=== PATIENT | male | born 1950 | race Caucasian/White ===

== ENCOUNTER 2017-09-16 18:43 | Inpatient (IN) | payer MEDICARE, OTHER ==
[2017-09-16 19:32] LABS: WHITE BLOOD COUNT 73.7 10^3/ul (4.8-10.8)
[2017-09-16 19:32] LABS: ABNORMAL IP MESSAGE 1; HEMATOCRIT 41.4 % (42.0-52.0); HEMOGLOBIN 13.8 g/dl (14.0-18.0); MEAN CORPUSCULAR HGB CONC 33.3 g/dl (32.0-37.0); MEAN PLATELET VOLUME 11.8 fl (7.4-10.4); PLATELET COUNT 299 10^3/UL (140-415); POSITIVE DIFF @See below; RED CELL DISTRIBUTION WIDTH 12.7 % (11.5-14.5)
[2017-09-16] MEDS: CEFEPIME 2GM/50 ML (PMX) 50 ML IVPB (19:35)
[2017-09-16] MEDS: SODIUM CHLORIDE 0.9% 1L BAG IV* (19:35)
[2017-09-16 19:40] LABS: ADD MAN DIFF? YES
[2017-09-16 20:05] LABS: INR 1.15; PARTIAL THROMBOPLASTIN TIME 27.5 Sec (25.0-35.0); PROTIME 14.9 Sec (11.9-14.9); PT RATIO 1.2
[2017-09-16 20:10] LABS: ALANINE AMINOTRANSFERASE 52 IU/L (13-69); ALBUMIN 2.5 g/dl (3.3-4.9); ALBUMIN/GLOBULIN RATIO 0.78; ALKALINE PHOSPHATASE 151 IU/L (42-121); ANION GAP 27 (8-16); ASPARTATE AMINO TRANSFERASE 25 IU/L (15-46); BILIRUBIN,INDIRECT 0.2 mg/dl (0-1.1); BILIRUBIN,TOTAL 0.2 mg/dl (0.2-1.3); BLOOD UREA NITROGEN 35 mg/dl (7-20); CARBON DIOXIDE 14 mmol/L (21-31); CHLORIDE 93 mmol/L (97-110); CREATININE 1.71 mg/dl (0.61-1.24); POTASSIUM 4.1 mmol/L (3.5-5.1); SODIUM 130 mmol/L (135-144); TOTAL PROTEIN 5.7 g/dl (6.1-8.1)
[2017-09-16 20:11] LABS: BAND NEUTROPHILS #M 4.4 10^3/ul (0.0-0.6); BAND NEUTROPHILS % (M) 6 % (0-4); LYMPHOCYTES #M 0.7 10^3/ul (0.8-2.9); LYMPHOCYTES % (M) 1 % (15-51); MONOCYTE #M 3.6 10^3/ul (0.3-0.9); MONOCYTES % (M) 5 % (0-11); PLATELET ESTIMATE NORMAL; PROMYELOCYTES #M 0.7 10^3/ul (0-0); PROMYELOCYTES % (M) 1 % (0-0); SEG NEUT #M 67.4 10^3/ul (1.6-7.5); SEGMENTED NEUTROPHILS (M) % 87 % (39-77); SMUDGE%M 2 % (0-0)
[2017-09-16 20:22] LABS: TROPONIN-I 0.053 ng/ml (0.00-0.12)
[2017-09-16 20:38] LABS: GLUCOSE 571 mg/dl (70-220)
[2017-09-16 21:31] LABS: LACTIC ACID 2.4 mmol/L (0.5-2.0)
[2017-09-16 22:50] LABS: ADD UMIC YES; UR ASCORBIC ACID NEGATIVE (NEGATIVE); UR BACTERIA FEW /HPF (NONE SEEN); UR BILIRUBIN (Dip) NEGATIVE (NEGATIVE); UR BLOOD (Dip) 3+ mg/dL (NEGATIVE); UR CLARITY CLOUDY (CLEAR); UR COLOR YELLOW (YELLOW); UR GLUCOSE (Dip) 3+ mg/dL (NEGATIVE); UR KETONES (Dip) 1+ mg/dL (NEGATIVE); UR LEUKOCYTE ESTERASE (Dip) 3+ Leu/ul (NEGATIVE); UR NITRITE (Dip) POSITIVE (NEGATIVE); UR RBC 66 /HPF (0-5); UR SPECIFIC GRAVITY (Dip) 1.014 (1.003-1.030); UR TOTAL PROTEIN (Dip) 2+ mg/dl (NEGATIVE); UR UROBILINOGEN (Dip) 1+ mg/dL (NEGATIVE); UR WBC > 182 /HPF (0-5)
[2017-09-16] MEDS: INSULIN LISPRO 100 UNIT/ML VIAL SC (23:25)
[2017-09-16 23:55] LABS: LACTIC ACID 2.2 mmol/L (0.5-2.0)
[2017-09-17] MEDS ORDERED: DEXTROSE 50% 50 ML IV
[2017-09-17] MEDS ORDERED: DEXTROSE 50% 25 ML IV
[2017-09-17] MEDS ORDERED: ADJUSTMENT OF INSULIN INFUSION RATE (DKA PROTOCOL) XX (00:30)
[2017-09-17] MEDS: INSULIN HUMAN REGULAR 100 UNIT in SOD CHLORIDE 0.9% 99 ML IV (00:45)
[2017-09-17 01:44] LABS: ANION GAP 17 (8-16); BLOOD UREA NITROGEN 38 mg/dl (7-20); CALCIUM 8.4 mg/dl (8.4-10.2); CARBON DIOXIDE 22 mmol/L (21-31); CHLORIDE 100 mmol/L (97-110); CREATININE 1.45 mg/dl (0.61-1.24); POTASSIUM 3.8 mmol/L (3.5-5.1); SODIUM 135 mmol/L (135-144)
[2017-09-17 01:46] LABS: GLUCOSE 439 mg/dl (70-220)
[2017-09-17 02:16] LABS: MODE ROOM AIR; MetHgb Venous 1.4 %; Sample Type Blood venous; Site VENOUS LINE; Venous COHb 0.5 %; Venous Fraction OxyHgb 76.1 %; Venous Oxygen Sat 77.6 mmHG (55.0-75.0); Venous Total Hemglobin 6.3 g/dl
[2017-09-17] MEDS: DILTIAZEM 50 MG INJ IV ×2 (02:40→04:48)
[2017-09-17] MEDS ORDERED: LORAZEPAM 2 MG INJ (03:38)
[2017-09-17] MEDS: LORAZEPAM 2 MG INJ IV (03:46)
[2017-09-17 03:58] LABS: ANION GAP 16 (8-16); BLOOD UREA NITROGEN 42 mg/dl (7-20); CALCIUM 8.3 mg/dl (8.4-10.2); CARBON DIOXIDE 22 mmol/L (21-31); CHLORIDE 102 mmol/L (97-110); CREATININE 1.36 mg/dl (0.61-1.24); GLUCOSE 286 mg/dl (70-220); POTASSIUM 3.3 mmol/L (3.5-5.1); SODIUM 137 mmol/L (135-144)
[2017-09-17] MEDS: SOD CHLORIDE 0.9% 1,000 ML IV ×2 (04:15→06:08)
[2017-09-17] MEDS: POTASSIUM CHLORIDE 30 MEQ in SOD CHLORIDE 0.9% 1,000 ML IV (05:00)
[2017-09-17] MEDS: DEXTROSE 5%-0.45% NACL 1,000 ML IV ×2 (05:45→10:26)
[2017-09-17 06:28] LABS: ANION GAP 12 (8-16); BLOOD UREA NITROGEN 44 mg/dl (7-20); CALCIUM 8.5 mg/dl (8.4-10.2); CARBON DIOXIDE 28 mmol/L (21-31); CHLORIDE 106 mmol/L (97-110); CREATININE 1.22 mg/dl (0.61-1.24); GLUCOSE 107 mg/dl (70-220); POTASSIUM 3.5 mmol/L (3.5-5.1); SODIUM 142 mmol/L (135-144)
[2017-09-17] MEDS ORDERED: VANCOMYCIN IV PER PHARMACY XX (06:30)
[2017-09-17] MEDS ORDERED: NORepinephrine 8MG/250 ML (PMX 250 ML IV (06:30)
[2017-09-17] MEDS ORDERED: ACETAMINOPHEN 650 MG SUPP PR (06:30)
[2017-09-17] MEDS: PIPER-TAZO 3.375 GM IV (PMX) 100 ML IVPB ×2 (07:20→12:42)
[2017-09-17] MEDS ORDERED: DEXTROSE 50% 50 ML SYRINGE IV ×4 (08:00→09:00)
[2017-09-17] MEDS ORDERED: INSULIN HUMAN REGULAR 100 UNIT in SOD CHLORIDE 0.9% 99 ML IV (08:00)
[2017-09-17] MEDS: ACCU-CHEK XX (08:17)
[2017-09-17] MEDS: VANCOMYCIN 1.5 GM in SOD CHLORIDE 0.9% 250 ML IVPB (08:48)
[2017-09-17] MEDS ORDERED: GLUCAGON 1 MG INJ IM (09:00)
[2017-09-17] MEDS ORDERED: GLUCOSE GEL 15 GRAM TUBE BUCCAL (09:00)
[2017-09-17] MEDS ORDERED: GLUCOSE GEL 15 GRAM TUBE PO ×2 (09:00)
[2017-09-17 09:26] LABS: ANION GAP 11 (8-16); BLOOD UREA NITROGEN 42 mg/dl (7-20); CARBON DIOXIDE 27 mmol/L (21-31); CHLORIDE 106 mmol/L (97-110); CREATININE 1.08 mg/dl (0.61-1.24); GLUCOSE 69 mg/dl (70-220); POTASSIUM 3.7 mmol/L (3.5-5.1); SODIUM 140 mmol/L (135-144)
[2017-09-17] MEDS: INSULIN GLARGINE [LANtus] 3 ML PEN SC (10:19)
[2017-09-17 10:27] LABS: ABNORMAL IP MESSAGE 1; HEMATOCRIT 34.7 % (42.0-52.0); HEMOGLOBIN 12.1 g/dl (14.0-18.0); MEAN CORPUSCULAR HEMOGLOBIN 30.9 pg (29.0-33.0); MEAN CORPUSCULAR HGB CONC 34.9 g/dl (32.0-37.0); MEAN CORPUSCULAR VOLUME 88.5 fl (82.0-101.0); MEAN PLATELET VOLUME 11.4 fl (7.4-10.4); PLATELET COUNT 230 10^3/UL (140-415); POSITIVE DIFF @See below; RED BLOOD COUNT 3.92 10^6/ul (4.70-6.10); RED CELL DISTRIBUTION WIDTH 12.5 % (11.5-14.5)
[2017-09-17 10:27] LABS: WHITE BLOOD COUNT 50.6 10^3/ul (4.8-10.8)
[2017-09-17 10:30] LABS: ADD MAN DIFF? YES
[2017-09-17 10:43] LABS: ANION GAP 12 (8-16); BLOOD UREA NITROGEN 40 mg/dl (7-20); CARBON DIOXIDE 23 mmol/L (21-31); CHLORIDE 106 mmol/L (97-110); CREATININE 1.06 mg/dl (0.61-1.24); GLUCOSE 148 mg/dl (70-220); POTASSIUM 3.4 mmol/L (3.5-5.1); SODIUM 138 mmol/L (135-144)
[2017-09-17 10:57] LABS: HEMOGLOBIN A1C 11.6 % (0-5.9)
[2017-09-17] MEDS: METOPROLOL 25 MG TAB PO (11:00)
[2017-09-17] MEDS: APIXABAN 5 MG TABLET PO (11:00)
[2017-09-17] MEDS: INSULIN ASPART [NOVOLOG] 3 ML PEN SC (11:30)
[2017-09-17 12:07] LABS: BAND NEUTROPHILS % (M) 10 % (0-4); LYMPHOCYTES % (M) 8 % (15-51); MONOCYTES % (M) 2 % (0-11); PLATELET ESTIMATE NORMAL; SEGMENTED NEUTROPHILS (M) % 80 % (39-77)
[2017-09-17] MEDS: ALTEPLASE (tPA) 1 MG/ML BOLUS SYG IV* (14:29)
[2017-09-17] MEDS: ALTEPLASE 100 MG INJ IV* (14:29)
[2017-09-17] MEDS ORDERED: SOD CHLORIDE 0.9% 100 ML (14:35)
[2017-09-17] MEDS ORDERED: IOHEXOL 100 ML (14:35)
[2017-09-17] MEDS ORDERED: IOHEXOL 350MG/ML 50 ML BTL (14:35)
[2017-09-17] MEDS: SOD CHLORIDE 0.9% 50 ML IV (15:16)
[2017-09-17] MEDS ORDERED: VANCOMYCIN 1.25 GM in SOD CHLORIDE 0.9% 250 ML IVPB (20:00)
[2017-09-18] MEDS ORDERED: ACCU-CHEK XX (02:00)
[2017-09-18] MEDS ORDERED: PANTOPRAZOLE 40 MG INJ IV (06:00)
== END 2017-09-17 17:40 | disposition short-term general hospital (02) | DRG 871 ==
LOC: ICU 23:51 → E/R 18:43
PROVIDERS: Family Medicine
DX: A41.9 Sepsis, unspecified organism (principal); G93.41 Metabolic encephalopathy; E11.10 Type 2 diabetes mellitus with ketoacidosis without coma; R65.21 Severe sepsis with septic shock; I63.231 Cerebral infarction due to unspecified occlusion or stenosis of right carotid arteries; N39.0 Urinary tract infection, site not specified; E87.1 Hypo-osmolality and hyponatremia; N17.9 Acute kidney failure, unspecified; Z79.4 Long term (current) use of insulin; J44.9 Chronic obstructive pulmonary disease, unspecified; I48.0 Paroxysmal atrial fibrillation; R91.1 Solitary pulmonary nodule
CPT/HCPCS: 36415; 70450; 70496; 70498; 71045; 71260; 74177; 76536; 80048; 80053; 81001; 82803; 82962; 83036; 83605; 84484; 85025; 85610; 85730; 87040; 87081; 87086; 93005; 93306; 96365; 96372; 96375; 96376; 99291-25